=== PATIENT | female | born 1945 | race Caucasian/White ===

== ENCOUNTER 2020-02-08 13:52 | Emergency (ER) | payer MEDICARE, OTHER ==
[2020-02-08] MEDS ORDERED: Aspirin 300 MG Supp RECTAL ONE (13:58)
[2020-02-08] MEDS ORDERED: Morphine 4 MG/ML Syringe IVPUSH PRN (13:58)
--- NOTE | 2020-02-08 14:02 | EDM.PDOC ---
ED HPI GENERAL MEDICAL PROBLEM - General Chief Complaint: Chest Pain Stated Complaint: [facility] Time Seen by Provider: 02/08/20 13:57 Source of Information: Reports: Patient, RN Notes Reviewed History Limitations: Reports: No Limitations - History of Present Illness INITIAL COMMENTS - FREE TEXT/NARRATIVE: 74-year-old female presents emergency department a complaint of chest pain, chest pain started approximately 2 hours prior she states it was quite intense she had some nausea with vomiting blood-tinged sputum very diaphoretic feeling short of breath. She states she has no known cardiac history however her twin sister does have a known history of coronary artery disease. She called EMS services EKG was obtained does show a left bundle branch block no aspirin was given because of the blood-tinged sputum was given 4 mg Zofran and 2 sprays of nitro which brought the pain down to a 5 out of 10. She is still complaining of chest pain, she is anxious and feeling short of breath nausea has subsided - Related Data Allergies Allergy/AdvReac Type Severity Reaction Status Date / Time tetracycline [Tetracycline] Allergy Swelling Verified 02/08/20 14:02 Home Meds: Home Meds Aspirin 1 tab PO DAILY 05/02/14 [History] Enalapril [Vasotec] 30 mg PO DAILY 05/02/14 [History] Simvastatin [Zocor] 20 mg PO DAILY 05/02/14 [History] Past Medical History HEENT History: Reports: Impaired Vision Cardiovascular History: Reports: High Cholesterol, Hypertension [employer] History: Reports: Musculoskeletal History: Reports: Arthritis, Osteoarthritis, Other (See Below) Other Musculoskeletal History: Hx of fractured ankle - Past Surgical History GI Surgical History: Reports: Appendectomy, Cholecystectomy Female Surgical History: Reports: Hysterectomy, Oophorectomy Social & Family History - Family History Cardiac: Reports: CAD, Hypertension, [place] Neurological: Reports: Parkinson's ED ROS GENERAL - Review of Systems Review Of Systems: See Below Constitutional: Reports: No Symptoms HEENT: Reports: No Symptoms Respiratory: Reports: Shortness of Breath Cardiovascular: Reports: Chest Pain GI/Abdominal: Reports: Nausea, Vomiting : Reports: No Symptoms Musculoskeletal: Reports: No Symptoms Skin: Reports: No Symptoms ED EXAM, GENERAL - Physical Exam Exam: See Below Exam Limited By: No Limitations General Appearance: Alert, Mild Distress Respiratory/Chest: No Respiratory Distress, Lungs Clear, Normal Breath Sounds, No Accessory Muscle Use, Chest Non-Tender Cardiovascular: Regular Rate, Rhythm, No Murmur GI/Abdominal: Soft, Non-Tender Extremities: No Pedal Edema (Is) Course - Vital Signs Last Recorded V/S: Last Vital Signs Temp 96.8 F L 02/08/20 13:58 Pulse 69 02/08/20 16:15 Resp 15 02/08/20 16:15 BP 139/75 02/08/20 16:15 Pulse Ox 98 02/08/20 16:15 - Orders/Labs/Meds Orders: Active Orders 24 hr Category Date Time Status Cardiac Monitoring [RC] .As Directed Care 02/08/20 13:58 Active Cardiac Monitoring [RC] STAT Care 02/08/20 14:45 Active Communication Order [RC] Per Unit Routine Care 02/08/20 14:45 Active Communication Order [RC] Per Unit Routine Care 02/08/20 14:45 Active EKG Documentation Completion [RC] ASDIRECTED Care 02/08/20 13:59 Active Chest 1V Frontal [CR] Stat Exams 02/08/20 13:59 Taken Heparin Sodium/D5W [Heparin 25,000 Units in D5W 500 ML] Med 02/08/20 14:45 Active 25,000 units in 500 ml IV TITRATE Morphine Med 02/08/20 13:58 Active 4 mg IVPUSH Q10M PRN EKG 12 Lead [EK] Stat Ther 02/08/20 13:59 Ordered Medication Orders Heparin Sodium/Dextrose (Heparin 25,000 Units In D5w 500 Ml) 25,000 units in 500 mls @ 925.916 mls/hr IV TITRATE GERALDO; Protocol Last Admin: 02/08/20 15:29 Dose: 12 units/kg/hr, 14.914 mls/hr Documented by: JA Cosigned by: [id number] Morphine Sulfate (Morphine) 4 mg IVPUSH Q10M PRN PRN Reason: Chest Pain Stop: 02/09/20 13:58 Last Admin: 02/08/20 15:50 Dose: 4 mg Documented by: JA Labs: Laboratory Tests 02/08/20 02/08/20 02/08/20 Range/Units 14:15 14:15 14:15 WBC 9.3 (4.5-11.0) K/uL RBC 4.07 (3.30-5.50) M/uL Hgb 12.5 (12.0-15.0) g/dL Hct 38.0 (36.0-48.0) % MCV 93 (80-98) fL MCH 31 (27-31) pg MCHC 33 (32-36) % Plt Count 364 (150-400) K/uL Neut % (Auto) 76 H (36-66) % Lymph % (Auto) 16 L (24-44) % Wy[place] % (Auto) 5 (2-6) % Eos % (Auto) 2 (2-4) % Baso % (Auto) 1 (0-1) % PT 11.3 (9.5-12.0) sec INR 1.05 (0.80-1.20) Sodium 140 (140-148) mmol/L Potassium 3.7 (3.6-5.2) mmol/L Chloride 103 (100-108) mmol/L Carbon Dioxide 26 (21-32) mmol/L Anion Gap 11.4 (5.0-14.0) mmol/L BUN 17 (7-18) mg/dL Creatinine 0.8 (0.6-1.0) mg/dL Est Cr Clr Drug Dosing 45.85 mL/min Estimated GFR (MDRD) > 60 (>60) Glucose 162 H (74-106) mg/dL Calcium 9.0 (8.5-10.1) mg/dL Total Bilirubin 0.4 (0.2-1.0) mg/dL AST 23 (15-37) U/L ALT 30 (12-78) U/L Alkaline Phosphatase 86 (46-116) U/L Troponin I 0.355 H* (0.000-0.056) ng/mL Total Protein 7.1 (6.4-8.2) g/dL Albumin 3.8 (3.4-5.0) g/dL Globulin 3.3 (2.3-3.5) g/dL Albumin/Globulin Ratio 1.2 (1.2-2.2) Meds: Medications Generic Name Dose Route Start Last Admin Trade Name Freq PRN Reason Stop Dose Admin Heparin Sodium/Dextrose 25,000 units in 500 mls @ 925.916 mls/hr 02/08/20 14:45 02/08/20 15:29 Heparin 25,000 Units In D5w 500 Ml IV 12 units/kg/hr TITRATE GERALDO 14.914 mls/hr Administration Protocol 745 UNITS/KG/HR Morphine Sulfate 4 mg 02/08/20 13:58 02/08/20 15:50 Morphine IVPUSH 02/09/20 13:58 4 mg Q10M PRN Administration Chest Pain Discontinued Medications Generic Name Dose Route Start Last Admin Trade Name Freq PRN Reason Stop Dose Admin Aspirin 324 mg 02/08/20 14:45 02/08/20 14:34 Aspirin .XX 02/08/20 14:46 324 mg ONETIME ONE Administration Heparin Sodium (Porcine) 3,700 units 02/08/20 14:45 02/08/20 15:02 Heparin Sodium IVPUSH 02/08/20 14:46 3,700 units ONETIME ONE Administration Ticagrelor 180 mg 02/08/20 14:45 02/08/20 15:01 Brilinta PO 02/08/20 14:46 180 mg ONETIME ONE Administration Departure - Departure Time of Disposition: 16:30 Disposition: DC/Tfer to Acute Hospital 02 Reason for Transfer *Q: Primary PCI Indicated Condition: Fair Clinical Impression: Non-STEMI (non-ST elevated myocardial infarction) Referrals: PCP,None [Primary Care Provider] - Forms: ED Department Discharge Critical Care Note - Critical Care Note Total Time (mins): 30 Sepsis Event Note (ED) - Focused Exam Vital Signs: Vital Signs Temp Pulse Resp BP Pulse Ox 02/08/20 16:15 69 15 139/75 98 02/08/20 15:24 67 10 L 157/82 H 98 02/08/20 14:55 67 16 153/79 H 100 02/08/20 14:30 62 140/73 02/08/20 13:58 96.8 F L 79 13 165/92 H 98 - My Orders Last 24 Hours: My Active Orders 02/08/20 13:58 Cardiac Monitoring [RC] .As Directed Morphine 4 mg IVPUSH Q10M PRN 02/08/20 13:59 EKG Documentation Completion [RC] ASDIRECTED Chest 1V Frontal [CR] Stat EKG 12 Lead [EK] Stat 02/08/20 14:45 Cardiac Monitoring [RC] STAT Communication Order [RC] Per Unit Routine Communication Order [RC] Per Unit Routine Heparin Sodium/D5W [Heparin 25,000 Units in D5W 500 ML] 25,000 units in 500 ml IV TITRATE - Assessment/Plan Last 24 Hours: My Active Orders 02/08/20 13:58 Cardiac Monitoring [RC] .As Directed Morphine 4 mg IVPUSH Q10M PRN 02/08/20 13:59 EKG Documentation Completion [RC] ASDIRECTED Chest 1V Frontal [CR] Stat EKG 12 Lead [EK] Stat 02/08/20 14:45 Cardiac Monitoring [RC] STAT Communication Order [RC] Per Unit Routine Communication Order [RC] Per Unit Routine Heparin Sodium/D5W [Heparin 25,000 Units in D5W 500 ML] 25,000 units in 500 ml IV TITRATE Plan: Assessment Acuity = acute Site and laterality = non-ST elevation myocardial infarction complicated patient with known history of hypertension dyslipidemia Etiology = probable underlying coronary artery disease Manifestations = angina Location of injury = Home Lab values = CBC, CMP unremarkable troponin elevated 0.355 EKG does demonstrate a new left bundle branch block with ST depressions in V3 4 5 and [address] depressions in 1 and 2, chest x-ray I did review films myself I cannot appreciate any acute process, the official read from radiology is pending Plan Call discussed case with Dr. De La Rosa hospitalist on-call [facility] at 1530 did review the case with cardiology was finally accepted by Dr. Trevino hospitalist at 1620 thus far she has been given aspirin rectally, 180 mg Brilinta heparin bolus and heparin drip has been initiated she will be transported via EMS ground [facility] This note was dictated using [employer] voice recognition software please call with any questions on syntax or grammar.
[2020-02-08] MEDS ORDERED: Aspirin 81 MG Tab.Chew ONE (14:45)
[2020-02-08] MEDS ORDERED: Heparin Sodium/D5W 25,000 UNITS/500 ML BAG IV SCH (14:45)
[2020-02-08] MEDS ORDERED: Ticagrelor 90 MG Tab PO ONE (14:45)
[2020-02-08] MEDS ORDERED: Heparin Sodium 5,000 Units/ML Vial IVPUSH ONE (14:45)
[2020-02-08 16:29] VITALS: BP 146/75; PULSE 58
--- NOTE | 2020-02-10 09:24 | CR ---
CHEST: Portable 02/08/2020 at 2:24 PM CLINICAL HISTORY:Chest pain COMPARISON:None FINDINGS: The heart size, pulmonary vascularity and hilar structures are normal. No infiltrate effusion or pneumothorax is seen. There are atherosclerotic changes in the aorta. IMPRESSION: No acute cardiopulmonary process.
--- OUTSIDE RECORDS SUMMARY | 2020-02-12 12:03 | XMSREPORT ---
:1945 Author Organization [facility] s Address [address] [place] [address] Care Team Providers Name Role Phone KAMILA Munguia Primary Care Provider KAMILA Munguia Attributed Provider MD Milka Unavailable Reason for Referral Comprehensive Primary Care Plus (Routine) Status Reason Specialty Diagnoses / Referred By Referred To Contact Procedures Contact New Request CARDIOLOGY Diagnoses Non-ST elevation MS (NSTEMI) ([facility]) Krzysztof Lopez [facility] Cardiology Mickey Lauren MD [address] [phone] Phone: Phone: Scheduling Instructions This is an electronic referral. Reason for Visit Reason Comments Auth/Cert Status Reason Specialty Diagnoses / Procedures Referred By Keagan yang Referred To Contact Encounter Details Date Type Department Care Team Description 02/08/2020 - Hospital Encounter [facility] Provider, Gen vj Hosp Procedure Chest pain 02/11/2020 CENTER 6CD David Lyon MD [address] [place], [place] [id number] Inderjit Aranda MD [address] [place], [place] [id number] [place] [address] Krzysztof Lopez MD [address] [place] [address] [phone] Leonidas Sotelo MD [address] [place] [address] [phone] Allergies Active Allergy Reactions Severity Noted Date Comments Tetracyclines Edema 04/10/2012 Lip Swelling documented as of this encounter (statuses as of 02/11/2020) Medications Medication Sig Dispensed Refills Start End Status Date Date aspirin 81 mg enteric Take 81 mg 0 Active coated tablet by mouth 1 time per day. anastrozole (ARIMIDEX) 1 Take 1 90 tablet 3 08/05/20 Active MG tabletIndications: tablet (1 19 Breast cancer of mg) by mouth upper-outer quadrant of 1 time per left female breast (HCC) day Cholecalciferol (VITAMIN Take 1 0 05/02/20 Active D-3) 25 MCG (1000 UT) capsule by 19 CAPS mouth atorvaSTATin (LIPITOR) Take 1 30 tablet 1 02/11/20 Active 40 mg tabletIndications: tablet (40 20 020 Non-ST elevation MS mg) by mouth (NSTEMI) ([facility]) every night at bedtime metoprolol tartrate Take 0.5 30 tablet 1 02/11/20 Active (LOPRESSOR) 25 mg tablets 20 020 tabletIndications: (12.5 mg) by Non-ST elevation MS mouth 2 (NSTEMI) ([facility]) times a day ticagrelor (BRILINTA) 90 Take 1 60 tablet 0 02/10/03/12 Active mg tabletIndications: tablet (90 20 020 Non-ST elevation MS mg) by mouth (NSTEMI) ([facility]) 2 times a day nitroglycerin Dissolve 1 25 tablet 0 02/11/20 Activ e (NITROSTAT) 0.4 mg tablet (0.4 20 020 sublingual mg) under tabletIndications: the tongue Non-ST elevation MS Every 5 (NSTEMI) ([facility]) minutes as needed for chest pain May repeat every 5 minutes for a total of 3 doses. K Phos Wasatch-Sod Phos Di Take 2 6 tablet 3 02/11/20 Active & Wasatch (J-EIOC-CULVXRA) tablets (500 20 155-852-130 MG mg) by mouth TABSIndications: 1 time per Hypokalemia day enalapril-hydroCHLOROthi Take 1 90 tablet 0 08/09/2002/10 Discontinued azide (VASERETIC) 10-25 tablet by 19 020 (Stop Taking at mg tabletIndications: mouth 1 time Discharge) Essential hypertension per day simvastatin (ZOCOR) 20 TAKE 1 & 1/2 135 tablet 4 09/10/19 Discontinued mg tabletIndications: (ONE & 20 020 (Stop Taking at Pure ONE-HALF) Discharge) hypercholesterolemia TABLETS BY MOUTH ONCE DAILY documented as of this encounter (statuses as of 02/11/2020) Active Problems Problem Noted Date Chest pain 02/08/2020 Overweight (BMI 25.0-29.9) 06/12/2017 Breast cancer of upper-outer quadrant of left female b reast 07/15/2016 Osteopenia 04/10/2012 Essential hypertension 04/10/2012 Esophageal reflux 03/30/2009 Pure hypercholesterolemia 12/18/2002 Osteoarthritis 12/18/2002 documented as of this encounter (statuses as of 02/11/2020) Immunizations Name Administration Dates Next Due Pneumococcal Conj PCV13 06/01/2015 Pneumococcal Polysaccharide PPSV23 06/08/2016, 03/30/2009 Td(adult)preservative free 05/08/2006 documented as of this encounter Social History Tobacco Use Types Packs/Day Years Used Date Former Smoker Cigarettes 0.5 0.5 Quit: 08/14/18 74 Smokeless Tobacco: Never Used Alcohol Use Drinks/Week oz/Week Comments No 0.0 Physical Activity Answer Date Recorded On average, how many days per week do you engage in moderate to 0 days 08/27/2019 strenuous exercise (like walking fast, running, jogging, dancing, swimming, biking, or other activities that cause a light or heavy sweat)? On average, how many minutes do you engage in exercise at th is 0 min 08/27/2019 level? Sex Assigned at Date Recorded Not on file Job Start Date Occupation Industry Not on file Not on file Not on file Travel History Travel Start Travel End No recent travel history available. documented as of this encounter Last Filed Vital Signs Vital Sign Reading Time Taken Comments Blood Pressure 148/77 02/11/2020 8:54 AM CDT Pulse 101 02/11/2020 8:54 AM CDT Temperature 37.1 C (98.7 F) 02/11/2020 7:31 AM CDT Respiratory Rate 16 02/11/2020 7:31 AM CDT Oxygen Saturation 93% 02/11/2020 7:31 AM CDT Inhaled Oxygen Concentration - - Weight 60.7 kg (133 lb 12.8 oz) 02/10/2020 6:44 AM CDT Height 154.9 cm (5' 1") 02/08/2020 8:00 PM CDT Body Mass Index 25.28 02/08/2020 8:00 PM CDT documented in this encounter Functional Status Functional Status Response Date of Assessment Is the person deaf or does he/she have serious difficulty No 02/08/2020 hearing? Is this person blind or does he/she have difficulty No 02/08/2020 seeing even when wearing glasses? Do you have difficulty with walking, balance, climbing No 02/08/2020 stairs, or had a fall in the last 3 months? Does the patient have difficulty dressing or bathing? No 02/08/2020 Because of a physical, mental, or emotional condition; No 02/08/2020 does this person have difficulty doing errands alone such as visiting a doctor's office or shopping? Cognitive Status Response Date of Assessment Because of a physical, mental, or emotional condition; No 02/08/2020 does this person have serious difficulty concentrating, remembering, or making decisions? documented as of this encounter Discharge Summaries Not on filedocumented in this encounter Discharge Instructions AttachmentsThe following attachments cannot be sent through Care Everywhere. *Discharge Instructions after Angiogram (Citizen Of [place])documented in this encounter Medications at Time of Discharge Medication Sig Dispensed Refills Start Date End Date atorvaSTATin (LIPITOR) 40 Take 1 tablet (40 30 tablet 1 04/11/2020 mg tabletIndications: mg) by mouth every Non-ST elevation MS night at bedtime (NSTEMI) ([facility]) ticagrelor (BRILINTA) 90 Take 1 tablet (90 60 tablet 0 01/1403/12/2020 mg tabletIndications: mg) by mouth 2 Non-ST elevation MS times a day (NSTEMI) ([facility]) nitroglycerin (NITROSTAT) Dissolve 1 tablet 25 tablet 0 03/12/2020 0.4 mg sublingual (0.4 mg) under the tabletIndications: Non-ST tongue Every 5 elevation MS (NSTEMI) minutes as needed (HCC) for chest pain May repeat every 5 minutes for a total of 3 doses. Cholecalciferol (VITAMIN Take 1 capsule by 0 04/14 D-3) 25 MCG (1000 UT) CAPS mouth anastrozole (ARIMIDEX) 1 Take 1 tablet (1 90 tablet 3 08/05 MG tabletIndications: mg) by mouth 1 time Breast cancer of per day upper-outer quadrant of left female breast (HCC) aspirin 81 mg enteric Take 81 mg by mouth 0 coated tablet 1 time per day. metoprolol tartrate Take 0.5 tablets 30 tablet 1 02/11/2020 04/11/2020 (LOPRESSOR) 25 mg (12.5 mg) by mouth tabletIndications: Non-ST 2 times a day elevation MS (NSTEMI) (HCC) K Phos Wasatch-Sod Phos Di & Take 2 tablets (500 6 tablet 3 0 02/11/2020 Wasatch (S-ZMSZ-NXIAXRO) mg) by mouth 1 time 155-852-130 MG per day TABSIndications: Hypokalemia documented as of this encounter Progress Notes Inderjit Westbrook MD - 02/09/2020 6:12 PM CDT Cardiology Hospital Progress Note Assessment / Plan Active Problems: Chest pain Resolved Problems: * No resolved hospital problems. * Plan: The patient is seen and examined, chart is reviewed. Patient is 74 years old. Yesterday admitted with non-ST elevation myocardial infarction. Underwent a coronary angiogram by Dr. Black Hogan.Angiogram showed multivessel coronary artery disease, 95% proximal LAD stenosis, 90% proximal RCA, 100% circumflex. Her ventriculogram showed left ventricular ejection fraction of 40%. Dr. Hogan discussed with Dr. Jordan regarding feasibility of coronary artery bypass surgery. However, it was feltit is better she get multivessel coronary artery stenting procedure secondary to the fact that she had received dual antiplatelet agent. Hence, he proceeded with PTCA stenting of the left anterior descending artery as well as the right coronary artery. The patient had an echocardiogram today. I reviewed the echo images. Her left ventricular ejection fraction was normal on the echo images at 55% as compared to the ventriculogram, so we will go by echo images LV function assessment. No significant valvular abnormality. Right ventricular function appeared normal. Based on discussion, Dr. Hogan discontinued the intraaortic balloon pump today as she was hemodynamically stable. Patient's medications include aspirin and ticagrelor and high-intensity statin therapy. Now that the intraaortic balloon pump has come down, we will start her on small doses of Lasix and lisinopril therapy. She will be enrolled in cardiac rehab. Will review her tomorrow and I will leave it to the primary team for discharge planning. Receipt: [id number] [facility] ID: [id number]/[facility] [employer] HPI / History / ROS Esther Osborne is a 74yr old female admitted on 02/08/2020. HPI Review of Systems Physical / Results Current Vital Signs Temp: 98.6 F (37 C) BP: 142/70 Weight: 60.7 kg (133 lb 12.8 oz) SpO2: 100 % Resp: 13 Pulse: 89 Current BMI (>50 = increased risk): 25.29 O2 Device: Room Air O2 Flow Rate (L/min): 2 l/min Pain Ratin Maximum Temperatures (last 24 hours) Temperature Maximum Max Temp 99.1 F (37.3 C) Physical Exam Constitutional: No distress. HENT: Mouth/Throat: Oropharynx is clear. Eyes: Conjunctivae are normal. Neck: No JVD present. No neck adenopathy. No thyromegaly present. Cardiovascular: S1 normal and S2 normal. Pulmonary/Chest: She has no wheezes. She has no rales. Abdominal: Soft. Musculoskeletal: She exhibits no edema. Neurological: She is alert and oriented to person, place, and time. Skin: Skin is warm and dry. Lab Results Component Value Date GLUCOSE 164 (H) 02/09/2020 BUN 15 02/09/2020 CREATSERUM 0.71 02/09/2020 BCRATIO 21.1 02/09/2020 NA 140 02/09/2020 POTASSIUM 3.4 (L) 02/09/2020 CL 110 02/09/2020 CO2 19 (L) 02/09/2020 CA 8.3 (L) 02/09/2020 PROTEINTOTAL 5.7 (L) 02/09/2020 ALBUMIN 3.5 02/09/2020 ALKPHOS 71 02/09/2020 AST 154 (H) 02/09/2020 ALT 32 02/09/2020 BILITOTAL 0.5 02/09/2020 EGFR 80 02/09/2020 Lab Results Component Value Date WBC 17.8 (H) 02/09/2020 NUCRBC 0 02/09/2020 RBC 3.51 (L) 02/09/2020 HEMOGLOBIN 9.8 (L) 02/09/2020 HEMATOCRIT 32.4 (L) 02/09/2020 MCV 92.3 02/09/2020 MCH 31.6 02/09/2020 MCHC 34.3 02/09/2020 PLTCOUNT 341 02/09/2020 NEUTROPCT 91.4 02/09/2020 LYMPHSPCT 2.7 02/09/2020 MONOSPCT 5.2 02/09/2020 EOSPCT 0.0 02/09/2020 BASOPHILPCT 0.2 02/09/2020 Faby Good MD - 02/09/2020 6:31 AM CDT INTERNAL MEDICINE DAILY PROGRESS NOTE Patient Name: Esther Osborne Admitted: 02/08/2020 Today's Date: 02/09/2020 Summary This is a 74 year old female with a past medical history of hypertension hyperlipidemia who presented with chest pain from outside facility. Troponin as 0.355 at outside facility. BNP elevated at 349. EKG showed ST depressions in V3 through V6 with new left bundle branch block. On admission her troponin had increased to 5.6 and on-call cardiology was notified and EKG was reviewed. At that time interventional cardiology was notified of increased troponin and was taken to emergent left heart cath. Coronary angiogram showed 95% diffuse proximal LAD stenosis, 90% proximal RCA stenosis, 100% circumflex, OM1 and OM2 appear large supplied by left to left collaterals. Left ventriculography EF 40% with anterior apical severe hypokinesis. At the time of emergent angiogram he was discussed with Dr. Jordan to original plan was for CABG however the patient was loaded with plan to continue to have chest pain despite balloon pump. It was elected to proceed with percutaneous intervention to the LAD which appeared to be the culprit vessel. The patient received PTCA and stenting to the proximal LAD with a 3.038 HEATHER, PTCA and stenting to the proximal RCA with 2.5 x 26 HEATHER. Assessment and Plan Acute Medical Conditions: #CAD s/p stent to LAD and RCA #Systolic HF #NSTEMI likely Type 1 #Typical chest pain #New LBBB #HTN #HLD This is a 74-year-old female who is admitted for an STEMI and typical chest pain who underwent emergent angiogram with stent placement to the LAD and RCA. -Overnight patient had oozing blood from her IABP site to the right quadrant area. -Has IABP placed -The patient does have an appetite was encouraged oral hydration and intake -The patient remained chest pain-free, nausea improved, abdominal pain improved Plan: -Cardiology following -IR Cardiology following -Telemetry -Echo ordered -Nitro and morphine PRN -Lopressor -Asa and Brillinta -Holding home Vaseretic -Lipitor 40mg -IVF -Daily labs CODE STATUS: Full Code DVT Prophylaxis: SCD Therapies: PT/OT Diet: HH Interval History The patient went to emergent Angiocath yesterday with stent placement. Overnight noted bleeding andcoincided Dr. Hogan was notified and pressure was held for 2 hours. Medications Current Facility-Administered Medications Medication Dose Route Frequency Provider Last Rate Last Dose sodium chloride 0.9% flush (adult) 10 mL 10 mL IV 2 times a day and prn Leonidas Sotelo MD metoclopramide (REGLAN) inj soln 5 mg 5 mg IV Every 6 hours prn Leonidas Sotelo MD5 mg at 02/08/202102 sodium chloride 0.9% IV solution IV Continuous Leonidas Sotelo MD 50 mL/hr at 02/08/202021 morphine preservative free injection solution (conc: 2 mg/mL) 2 mg 2 mg IV Every 5 minutes prn Faby Plascencia MD melatonin tablet 3 mg 3 mg Oral Bedtime prn Faby Plascencia MD senna-docusate sodium (SENOKOT-S;PERICOLACE) tablet 2 tablet 2 tablet Oral 2 times a day prn Faby Plascencia MD And bisacodyl (DULCOLAX) suppository 10 mg 10 mg Rectal 1 time a day prn Faby Plascencia MD And docusate sodium (THEREVAC-SB MINI;ENEMEEZ MINI) 283 MG enema 1 enema 1 enema Rectal 1 time a day prn Faby Plascencia MD ondansetron (ZOFRAN ODT) dispersible tablet 4 mg 4 mg Oral Every 4 hours prn Faby Plascencia MD And ondansetron (ZOFRAN) injection solution 4 mg 4 mg IV Every 4 hours prn Faby Plascencia MD acetaminophen (TYLENOL) tablet 650 mg 650 mg Oral Every 6 hours prn Faby Plascencia MD Or acetaminophen (TYLENOL) suppository 650 mg 650 mg Rectal Every 6 hours prn Faby Plascencia MD metoprolol tartrate (LOPRESSOR) half-tablet 12.5 mg 12.5 mg Oral 2 times a day Faby Plascencia MD 12.5 mg at 02/08/202029 atorvaSTATin (LIPITOR) tablet 40 mg 40 mg Oral at bedtime Faby Plascencia MD 40 mg at 02/08/202028 hEParin (50 units/mL) in D5W premixed IV solution (STANDARD-weight based) 0-50 Units/kg/hr IV Titrate Faby Plascencia MD Stopped at 02/09/20 0004 heparin (porcine) (5000 units/1 mL) IV dose 2,100 Units 35 Units/kg IV PRN per parameter Faby Plascencia MD Or heparin (porcine) (5000 units/1 mL) IV dose 4,200 Units 70 Units/kg IV PRN per parameter Faby Plascencia MD acetaminophen (TYLENOL) tablet 650 mg 650 mg Oral Every 4 hours prn Karen Hogan, hydrALAZINE (APRESOLINE) injection solution 10 mg 10 mg IV Every 6 hours prn Karen Hogan, nitroglycerin (NITROSTAT) sublingual tablet 0.4 mg 0.4 mg Sublingual Every 5 minutes prn Karen Hogan, DO aspirin chewable tablet 81 mg 81 mg Oral Daily Karen Hogan, DO ticagrelor (BRILINTA) tablet 90 mg 90 mg Oral 2 times a day Karen Hogan DO nitroglycerin (400 mcg/mL) in D5W IV solution (premix) 0-100 mcg/min IV Titrate Karen Hogan DO albuterol (PROVENTIL) (2.5 mg/3mL) 0.083% inhalation soln 2.5 mg 2.5 mg Nebulization Every 4 hours prn Melchor Rucker MD Review of Systems Review of Systems Constitution: Negative for chills and fever. HENT: Negative for ear pain. Eyes: Negative for pain. Cardiovascular: Negative for chest pain, dyspnea on exertion, leg swelling and palpitations. Respiratory: Negative for cough and shortness of breath. Musculoskeletal: Negative for joint pain and myalgias. Gastrointestinal: Negative for abdominal pain, constipation, diarrhea, nausea and vomiting. Genitourinary: Negative for dysuria. Neurological: Negative for focal weakness, headaches, light-headedness and weakness. Physical Exam Blood pressure 134/95, pulse 81, temperature 97.4 F (36.3 C), resp. rate 15, height 154.9 cm (61"), weight 60.7 kg (133 lb 12.8 oz), SpO2 98 %, not currently . Physical Exam Constitutional: She is oriented to person, place, and time. She appears well- developed and well-nourished. HENT: Head: Normocephalic and atraumatic. Right Ear: External ear normal. Left Ear: External ear normal. Eyes: Pupils are equal, round, and reactive to light. Conjunctivae and EOM are normal. Neck: Normal range of motion. Cardiovascular: Normal rate, regular rhythm, normal heart sounds and intact distal pulses. Exam reveals no friction rub. No murmur heard. Pulmonary/Chest: Breath sounds normal. No respiratory distress. Abdominal: Soft. Bowel sounds are normal. She exhibits no distension. There is no tenderness. Noted dried blood on right groin No obvious bleeding Tender to palpation Musculoskeletal: Normal range of motion. She exhibits no edema, tenderness or deformity. Lymphadenopathy: She has no cervical adenopathy. Neurological: She is alert and oriented to person, place, and time. Skin: Skin is warm and dry. No erythema. Psychiatric: She has a normal mood and affect. Labs reviewed. All pertinent positives and negatives reflected in the assessment and plan Medical Decision making Reviewed: previous chart, nursing note and vitals Reviewed previous: labs Faby Plascencia MD Internal Medicine Resident, PGY1 Pager #[phone] [place], [place] Associated attestation - David Rowan MD - 02/09/2020 12:36 PM CDT I discussed the patient with the resident and personally interviewed and examined the patient. I verified in the medical record all resident documentation/findings, including history, physical exam, and medical decision making, and I agree with the resident's documentation.documented in this encounter Plan of Treatment Date Type Specialty Care Team Description 02/17/2020 Office Visit Internal Medicine Farnaz Munguia PA [address] [place], [place] [id number] 02/20/2020 Office Visit Internal Medicine Farnaz Munguia PA [address] [place] [address] [phone] Name Type Priority Associated Diagnoses Order S chedule COMPLETE BLOOD COUNT Lab Routine Early A M draw for labs WITHOUT DIFFERENTIAL until d iscontinued starting 2019, 2 completed RENAL FUNCTION PANEL Lab Routine Early A M draw for labs until discontin ued starting 2019, 2 completed MAGNESIUM Lab Routine Early AM draw f or labs until discontin ued starting 2019, 2 completed POTASSIUM Lab Timed STAT Once for 1 Occu rrences starting 2019 until 0 Name Type Priority Associated Diagnoses Order S chedule CLINIC REFERRAL Referral Routine Non-ST elevation MS Order ed: 02/11/2020 CARDIOLOGY ONE CHART (NSTEMI) ([facility]) documented as of this encounter Goals Goal Patient Goal Associated Recent Patient-Stated? Author Type Problems Progress Blood Pressure Blood 148/77 No Wilks, < 140/90 Pressure Sandra Iglesias LPN documented as of this encounter Implants Implanted Type Area Dividend Deposit Entry Clerk Device Shelf Model / Identifier Expiration Date Ser ial / Lot [employer]-07/04/2016 Left: 7 / Implanted: Qty: 1 on 07/04/2016 by Mayo Slaughter MD JULIETA AST / [id number] documented as of this encounter Procedures Procedure Name Priority Date/Time Associated Comments Diagnosis COMPLETE BLOOD COUNT Routine 02/11/2020 5:27 Res ults for this WITHOUT DIFFERENTIAL AM CDT procedu re are in the results section. MAGNESIUM Routine 02/11/2020 5:27 Results for this AM CDT procedure are i n the results section. RENAL FUNCTION PANEL Routine 02/11/2020 5:27 Res ults for this AM CDT procedure are i n the results section. COMPLETE BLOOD COUNT Routine 02/10/2020 5:39 Res ults for this WITHOUT DIFFERENTIAL AM CDT procedu re are in the results section. TROPONIN I Routine 02/10/2020 5:39 Results for this AM CDT procedure are i n the results section. MAGNESIUM Routine 02/10/2020 5:39 Results for this AM CDT procedure are i n the results section. RENAL FUNCTION PANEL Routine 02/10/2020 5:39 Res ults for this AM CDT procedure are i n the results section. EKG STAT 02/09/2020 6:40 Results for this PM CDT procedure are i n the results section. HEMOGLOBIN Routine 02/09/2020 4:12 Results for this PM CDT procedure are i n the results section. HEMOGLOBIN Routine 02/09/2020 12:03 Results for this PM CDT procedure are i n the results section. ECHO ADULT COMPLETE Routine 02/09/2020 10:53 Resu lts for this AM CDT procedure are i n the results section. EKG Routine 02/09/2020 7:48 Results for this AM CDT procedure are i n the results section. LAB ONLY-COMPLETE Routine 02/09/2020 5:10 Result s for this BLOOD COUNT WITH AM CDT procedure a re in DIFFERENTIAL the results section. LIPID PANEL Routine 02/09/2020 5:10 Results for this AM CDT procedure are i n the results section. PTT Timed Routine 02/09/2020 5:10 Results fo r this AM CDT procedure are i n the results section. TROPONIN I Timed Routine 02/09/2020 5:10 Results fo r this AM CDT procedure are i n the results section. HEPATIC FUNCTION Routine 02/09/2020 5:10 Results for this PANEL AM CDT procedure are i n the results section. MAGNESIUM Routine 02/09/2020 5:10 Results for this AM CDT procedure are i n the results section. BASIC METABOLIC PANEL Routine 02/09/2020 5:10 Re sults for this AM CDT procedure are i n the results section. LAB ONLY-COMPLETE Routine 02/09/2020 5:10 Result s for this BLOOD COUNT WITH AM CDT procedure a re in DIFFERENTIAL the results section. EKG STAT 02/09/2020 12:14 Results for this AM CDT procedure are i n the results section. TROPONIN I Timed Routine 02/08/2020 11:54 Results fo r this PM CDT procedure are i n the results section. TYPE AND SCREEN Routine 02/08/2020 10:52 Results for this PM CDT procedure are i n the results section. CARDIAC CATH POSSIBLE Routine 02/08/2020 10:30 Re sults for this ANGIOPLASTY STENT PM CDT procedure are in HAND GLUER AND SLICER the results section. LAB ONLY-ABORH STAT 02/08/2020 10:22 Results f or this PM CDT procedure are i n the results section. COLLECT AND HOLD Routine 02/08/2020 10:22 Results for this POSSIBLE CROSSMATCH PM CDT procedur e are in TUBE the results section. COLLECT AND HOLD Routine 02/08/2020 10:10 Results for this POSSIBLE CROSSMATCH PM CDT procedur e are in TUBE the results section. XRAY CHEST PORTABLE Routine 02/08/2020 9:14 Resu lts for this PM CDT procedure are i n the results section. LAB ONLY-COMPLETE Routine 02/08/2020 8:28 Result s for this BLOOD COUNT WITH PM CDT procedure a re in DIFFERENTIAL the results section. COMPREHENSIVE Routine 02/08/2020 8:28 Results fo r this METABOLIC PANEL PM CDT procedure ar e in the results section. LAB ONLY-COMPLETE Routine 02/08/2020 8:28 Result s for this BLOOD COUNT WITH PM CDT procedure a re in DIFFERENTIAL the results section. EKG STAT 02/08/2020 8:05 Results for this PM CDT procedure are i n the results section. PTT RENEE 02/08/2020 8:02 Results for this PM CDT procedure are i n the results section. TROPONIN I Timed Routine 02/08/2020 8:02 Results fo r this PM CDT procedure are i n the results section. BRAIN NATRIURETIC Routine 02/08/2020 8:02 Result s for this PEPTIDE PM CDT procedure are i n the results section. documented in this encounter Results MAGNESIUM (02/11/2020 5:27 AM CDT) Pathologist Sig formerly [facility] Magnesium 2.1 1.8 - 2.4 mg/dL [place] [address] [facility] Specimen Blood Performing Organization Address [facility] [place] [facility] Phone Number [address] [place] [address] RENAL FUNCTION PANEL (02/11/2020 5:27 AM CDT) Pathologist Sig formerly [facility] Glucose 114 (H) 70 - 100 mg/dL [address] BUN 15 6 - 22 mg/dL [address] Creatinine 0.62 0.60 - 1.[address] mg/dL BUN/Creatinine Ratio 24.2 10.0 - 25.[address] Sodium 139 135 - 145 meq/L [address] Potassium 3.2 (L) 3.5 - 5.3 meq/L [address] Chloride 110 99 - 110 meq/L [address] CO2 21 20 - 29 meq/L [address] Anion Gap with K 11 6 - 20 meq/L [address] Calcium 8.2 (L) 8.5 - 10.5 mg/dL [address] Phosphorus 1.5 (L) 2.5 - 4.5 mg/dL [address] Albumin 3.5 3.5 - 5.0 g/dL [address] Corrected Calcium 8.6 8.5 - 10.5 mg/dL [address] Age [address] eGFR Non- >90 >=[address] Slovenian mL/min/1.73m2 eGFR >90 >=[address] mL/min/1.73m2 Specimen Blood Performing Organization Address [facility] [place] [facility] Phone Number [address] [place] [address], [place] [address] COMPLETE BLOOD COUNT WITHOUT DIFFERENTIAL (02/11/2020 5:27 AM CDT) Pathologist Sig formerly [facility] WBC 11.8 (H) 4.0 - 11.0 K/uL [place] [address] [facility] RBC 2.55 (L) 3.80 - 5.30 M/uL [address] Hemoglobin 8.1 (L) 11.5 - 15.8 g/dL [address] Hematocrit 23.8 (L) 35.0 - 45.0 % [address] MCV 93.3 80.0 - 98.[address] MCH 31.8 25.5 - 34.[address] MCHC 34.0 31.5 - 36.5 g/dL [address] RDW-CV 13.1 11.5 - 15.5 % [address] RDW-SD 44.6 35.5 - 50.[address] Platelet Count 228 140 - 400 K/uL [address] MPV 10.3 8.5 - 12.[address] Specimen Blood Performing Organization Address [facility] [place] [facility] Phone Number [address] [address] TROPONIN I (02/10/2020 5:39 AM CDT) Pathologist Sig nature Troponin I 15.901 (H) 0.000 - 0.028 ng/mL [address] Specimen Blood Performing Organization Address [facility] [place] Phone Number [address] [address] MAGNESIUM (02/10/2020 5:39 AM CDT) Pathologist Sig nature Magnesium 1.8 1.8 - 2.4 mg/dL [address] Specimen Blood Performing Organization Address [facility] [place] [facility] Phone Number [address] [address] RENAL FUNCTION PANEL (02/10/2020 5:39 AM CDT) Pathologist Sig nature Glucose 116 (H) 70 - 100 mg/dL [address] BUN 17 6 - 22 mg/dL [address] Creatinine 0.65 0.60 - 1.[address] mg/dL BUN/Creatinine Ratio 26.2 (H) 10.0 - 25.[address] Sodium 139 135 - 145 meq/L [address] Potassium 3.3 (L) 3.5 - 5.3 meq/L [address] Chloride 111 (H) 99 - 110 meq/L [address] CO2 22 20 - 29 meq/L [address] Anion Gap with K 9 6 - 20 meq/L [address] Calcium 7.9 (L) 8.5 - 10.[address] mg/dL Phosphorus 1.8 (L) 2.5 - 4.5 mg/dL [address] Albumin 3.3 (L) 3.5 - 5.0 g/dL [address] Corrected Calcium 8.5 8.5 - 10.[address] mg/dL Age 74 [address] eGFR Non- 89 >=[address] Slovenian mL/min/1.73m2 eGFR >90 >=[address] mL/min/1.73m2 Specimen Blood Performing Organization Address [facility] [place] Phone Number [address] [place] [address], [place] [address] COMPLETE BLOOD COUNT WITHOUT DIFFERENTIAL (02/10/2020 5:39 AM CDT) Pathologist Sig nature WBC 11.2 (H) 4.0 - 11.0 K/uL [address] RBC 2.71 (L) 3.80 - 5.30 M/uL [address] Hemoglobin 8.5 (L) 11.5 - 15.8 g/dL [address] Hematocrit 25.4 (L) 35.0 - 45.0 % [address] MCV 93.7 80.0 - 98.[address] MCH 31.4 25.5 - 34.[address] MCHC 33.5 31.5 - 36.5 g/dL [address] RDW-CV 13.4 11.5 - 15.5 % [address] RDW-SD 45.7 35.5 - 50.[address] Platelet Count 230 140 - 400 K/uL [address] MPV 10.2 8.5 - 12.[address] Specimen Blood Performing Organization Address [facility] [place] [facility] Phone Number [address] [address] EKG (02/09/2020 6:40 PM CDT)Only the most recent of4 resultswithin the time period is included. Pathologist Sig nature EKG WAVEFORM TRACEMASTER JESUSITA VILLALBAB Sinus rhythm with short [place] Left bundle branch block , new Abnormal ECG When compared with ECG of 09-FEB-2020 07:48, Aberrant conduction is no longer Present Left bundle branch block is now Present Ventricular Rate: 97 BPM Atrial Rate: 97 BPM P-R Interval: 108 ms QRS Duration: 126 ms Q-T Interval: 424 ms QTc Calculation(Bazett): 538 ms Calculated P Vinton: 20 degrees Calculated R Vinton: -2 degrees Calculated T Vinton: 136 degrees Specimen Narrative Performed At This result has an attachment that is no t available. Performing Organization Address [facility] Phone Number [employer]SESE [employer]B HEMOGLOBIN (02/09/2020 4:12 PM CDT) Pathologist Sig nature Hemoglobin 9.8 (L) 11.5 - 15.8 g/dL [address] Specimen Blood Performing Organization Address [facility] [place] Phone Number [address] [address] HEMOGLOBIN (02/09/2020 12:03 PM CDT) Pathologist Sig [facility] Hemoglobin 10.3 (L) 11.5 - 15.8 g/dL [address] Specimen Blood Performing Organization Address [facility] [place] [facility] Phone Number [address] [address] ECHO ADULT COMPLETE (02/09/2020 10:53 AM CDT) Specimen Narrative Performed At This result has an attachment that is no t available. [facility] Patient: ESTHER OSBORNE MR#:[id number] Exam Date:02/09/2020 Transthoracic Echocardiogram [address] BP: 61/134 mmHg HR:75 bpm : 1945 Exam Location:Bedside Height:61.00 "(154.9 cm) Age: 74 year(s) Patient Room: 541 01Weight:133 lbs.(60.33 kg) Gender:Female Patient Status: Inpatient BSA: 1.59 m2 Chart Calculator:LUCRECIA DE ANDA RD CS, RVT Reading Physician:DAVID WESTBROOK MD Ordering Physician:DAVID Mesa Procedure Indication(s): CP, Current IABP during echo Examination: TTE Complete 2D(m-mode), Complete Spectral Doppler, Color Doppler Image Quality: Keturah hnically Difficult Technical Limitations: Echocardiographic views were limited by restricted patient mobility. Clinical History Most Recent PCI Date: 02/08/2020 Conclusions Left Ventricle: Normal left ventricular systolic functio n. The ejection fraction, measured by 2D, is 55 %. Right Ventricle: Normal right ventricular systolic function. IVC: Normal IVC size with normal respirophasic changes. Pericardium: No significant pericardial effusion.No f unctionally significant valvular abnormalities. Comparison Study Comparison Study: No previous echo was available for c omparison Findings Left Ventricle: Normal left ventricular size. Normal lef t ventricular wall thickness. Normal left ventricular systolic function. The ejection fraction, measured by 2D, is 55 %. The b keyla inferior segment is hypokinetic. Grade 1 left ventricular diastolic dysfunction. IVS: There is sigmoid septal appearance. Left Atrium: Normal left atrial size. Aortic Valve: The aortic valve is tricuspid. Normal ao rtic cuspal mobility. No significant aortic regurgitation. No aortic stenosis. Aorta: The sinus of valsalva is normal in size. Mitral Valve: Normal mitral valve structure. Trivial m itral regurgitation. No mitral stenosis. IAS: No gross evidence of shunt flow seen; ho wever the possibility of a PFO cannot be completely ruled out. Right Ventricle: Normal right ventricular size. Normal ri ght ventricular systolic function. Normal right ventricular wall thickness. Pulmonary Artery: The tricuspid jet envelope definition is inadequate for estimation of RV systolic pressure. Pulmonary Vein: Normal pulmonary venous flow. Right Atrium: Normal right atrial size. Tricuspid Valve: Normal tricuspid valve structure. No significant tricu spid regurgitation. Pulmonic Valve: Normal pulmonary valve structure. IVC: Normal IVC size with normal respirophasic changes. Pericardium: No significant pericardial effusion. No functionally significant valvular abn ormalities. There is pericardial fat. Exam Details Image Quality:Tech nically Difficult Measurements Left Ventricle Aortic Valve Label ValueNormal Value Label ValueNormal Value LVDd, 2D 48.9 mm LVOT Vmax 145 cm/s LVDs, 2D 34.9 mm AV Vmax 178 cm/s IVSd, 2D 10.2 mm LVOT VTI24.9 cm LVPWd, 2D 10 .4 mm LVOT PGmax8 mmHg FS, 2D 28.63 % AV Nyuip527 cm/s LVEDV, 2D 11 2 mlAV VTI28.9 cm LVESV, 2D 50 ml AV PGmax13 mmHg LVEF, 2D 55 %AV PGmean 6 mmHg Heart Rate AV Vmax, Gywkous125 cm/s Label ValueNormal Value Mitral Valve Heart Rate75 bpmLabel ValueNormal Value MV E Vmax 77 cm/s MV A Vmax 121 cm/s MV E/A0.64 MV E/E' lateral 9.5 MV E/E' pdwsha15.8 MV Dec Time 224 ms MV E' septal4.8 cm/s MV E' lateral 8 cm/s Wall Motion Scores -1 - Not Scored, 0 - Unknown, 1 - Normal or hyperkinesia,2 - Hypokinesia,3 - Akinesia, 4 - Dyskinesia, 5 - Aneurysm Procedure Note Interface, Inc Results No Pull Forward - 02/09/2020 2:40 PM CDT Patient: ESTHER OSBORNE MR#: [id number] Exam Date: 02/09/2020 Transthoracic Echocardiogram [facility] [address] [place] [address] BP: 61/134 mmHg HR: 75 bpm : 1945 Exa m Location: Bedside Height: 61.00 "(154.9 cm) Age: 74 year(s) Pat ient Room: [facility] Weight: 133 lbs.(60.33 kg) Gender: Female Pat ient Status: Inpatient BSA: 1.59 m2 Chart Calculator: LUCRECIA DE ANDA RDCS, RVT Reading Physician: PATRICIA WESTBROOK MD Ordering Physician: DAVID PHIPPS Procedure Indication(s): CP, Cur rent IABP during echo Examination: TTE Com plete 2D(m-mode), Complete Spectral Doppler, Color Doppler Image Quality: Technic ally Difficult Technical Limitations: Echocar diographic views were limited by restricted patient mobility. Clinical History Most Recent PCI Date: 02/08/2020 Conclusions Left Ventricle: Normal left ventricular systolic functio n. The ejection fraction, measured by 2D, is 55 %. Right Ventricle: Normal right ventricular systolic functi on. IVC: Normal IVC size with normal respirophasi c changes. Pericardium: No significant pericardial effusion.No f unctionally significant valvular abnormalities. Comparison Study Comparison Study: No previous echo was a vailable for comparison Findings Left Ventricle: Normal left ventricular size. Normal lef t ventricular wall thickness. Normal left ventricular systolic function. The ejection fraction, measured by 2D, is 55 %. The b keyla inferior segment is hypokinetic. Grade 1 left ventricular diastolic dysfunction. IVS: There is sigmoid septal appearance. Left Atrium: Normal left atrial size. Aortic Valve: The aortic valve is tricuspid. Normal ao rtic cuspal mobility. No significant aortic regurgitation. No aortic stenosis. Aorta: The sinus of valsalva is normal in size. Mitral Valve: Normal mitral valve structure. Trivial m itral regurgitation. No mitral stenosis. IAS: No gross evidence of shunt flow seen; ho wever the possibility of a PFO cannot be completely ruled out. Right Ventricle: Normal right ventricular size. Normal ri ght ventricular systolic function. Normal right ventricular wall thickness. Pulmonary Artery: The tricuspid jet envelope definition is inadequate for estimation of RV systolic pressure. Pulmonary Vein: Normal pulmonary venous flow. Right Atrium: Normal right atrial size. Tricuspid Valve: Normal tricuspid valve structure. No sig nificant tricuspid regurgitation. Pulmonic Valve: Normal pulmonary valve structure. IVC: Normal IVC size with normal respirophasi c changes. Pericardium: No significant pericardial effusion. No functionally significant valvular abn ormalities. There is pericardial fat. Exam Details Image Quality: Technica lly Difficult Measurements Left Ventricle Aortic Valve Label Value Nor mal Value Label Value Normal Value LVDd, 2D 48.9 mm LVOT Vmax 145 cm/s LVDs, 2D 34.9 mm AV Vmax 178 cm/s IVSd, 2D 10.2 mm LVOT VTI 24.9 cm LVPWd, 2D 10.4 mm LVOT PGmax 8 mmHg FS, 2D 28.63 % AV Vmean 111 cm/s LVEDV, 2D 112 ml AV VTI 28.9 cm LVESV, 2D 50 ml AV PGmax 13 mmHg LVEF, 2D 55 % AV PGmean 6 mmHg Heart Rate AV Vmax, Caliper 178 cm/s Label Value Nor mal Value Mitral Valve Heart Rate 75 bpm Label Value Normal Value MV E Vmax 77 cm/s MV A Vmax 121 cm/s MV E/A 0.64 MV E/E' lateral 9.5 MV E/E' septal 15.8 MV Dec Time 224 ms MV E' septal 4.8 cm/s MV E' lateral 8 cm/s Wall Motion Scores -1 - Not Scored, 0 - Unknown, 1 - Normal or hyperkinesia, 2 - Hypokinesia, 3 - Akinesia, 4 - Dyskinesia, 5 - Aneurysm Performing Organization Address [facility] Phone Number [facility] F, [place] MAGNESIUM (02/09/2020 5:10 AM CDT) Pathologist Sig nature Magnesium 1.6 (L) 1.8 - 2.4 mg/dL [address] Specimen Blood Performing Organization Address [facility] [place] Phone Number [address] [facility] [place] [address] LAB ONLY-COMPLETE BLOOD COUNT WITH DIFFERENTIAL (02/09/2020 5:10 AM CDT) Pathologist Sig nature WBC 17.8 (H) 4.0 - 11.0 K/uL [address] RBC 3.51 (L) 3.80 - 5.[address] M/uL Hemoglobin 11.1 (L) 11.5 - 15.[address] g/dL Hematocrit 32.4 (L) 35.0 - 45.0 % [address] MCV 92.3 80.0 - 98.[address] MCH 31.6 25.5 - 34.[address] MCHC 34.3 31.5 - 36.[address] g/dL RDW-CV 13.2 11.5 - 15.5 % [address] RDW-SD 44.2 35.5 - 50.[address] Platelet Count 341 140 - 400 K/uL [address] MPV 10.0 8.5 - 12.[address] Seg Neut Absolute 16.2 (H) 1.8 - 8.0 K/uL [address] Lymphocytes Absolute 0.5 (L) 0.8 - 4.1 K/uL [place] [address] [facility] C Monocytes Absolute 0.9 0.0 - 1.0 K/uL [place] [address] [facility] Eosinophils Absolute 0.0 0.0 - 0.7 K/uL [place] [address] [facility] C Basophil Absolute 0.0 0.0 - 0.2 K/uL [address] Immature Granulocyte 0.09 (H) 0.00 - 0.06 [place] [address] [facility] Absolute K/uL Neutrophils Abs. 16,200 /uL [address] (Segs and Bands) Neutrophils Percent 91.4 % [address] Lymphocytes Percent 2.7 % [address] Monocytes Percent 5.2 % [address] Immature Granulocyte 0.5 % [address] Percent Eosinophils Percent 0.0 % [address] Basophil Percent 0.2 % [address] Nucleated RBC 0 /[address] Specimen Blood Performing Organization Address [facility] [place] Phone Number [address] [place] [address] TROPONIN I (02/09/2020 5:10 AM CDT) Pathologist Sig nature Troponin I 69.162 (H) 0.000 - 0.028 ng/mL [address] Specimen Blood Performing Organization Address [facility] [place] Phone Number [address] [place] [address] LIPID PANEL (02/09/2020 5:10 AM CDT) Pathologist Sig nature Cholesterol 153 100 - 200 mg/dL [facility] Triglyceride 118 50 - 150 mg/dL [facility] HDL 39 (L) 40 - 80 mg/dL [facility] LDL 90 0 - 129 mg/dL [facility] Specimen Blood Performing Organization Address [facility] [place] Phone Number [facility] [address] [place], [place] [phone] HEPATIC FUNCTION PANEL (02/09/2020 5:10 AM CDT) Pathologist [facility] Alkaline Phosphatase 71 30 - 150 U/L [address] AST - SGOT 154 (H) 0 - 35 U/L [address] ALT - SGPT 32 0 - 55 U/L [address] Bilirubin Total 0.5 0.2 - 1.2 mg/dL [address] Bilirubin Indirect 0.3 0.0 - 0.8 mg/dL [address] Bilirubin Direct 0.2 0.0 - 0.4 mg/dL [address] Albumin 3.5 3.5 - 5.0 g/dL [address] Protein Total 5.7 (L) 6.0 - 8.2 g/dL [address] Specimen Blood Performing Organization Address [facility] [place] Phone Number [address] [place] [address] BASIC METABOLIC PANEL (02/09/2020 5:10 AM CDT) [facility] Glucose 164 (H) 70 - 100 mg/dL [address] BUN 15 6 - 22 mg/dL [address] Creatinine 0.71 0.60 - 1.[address] mg/dL BUN/Creatinine Ratio 21.1 10.0 - 25.[address] Sodium 140 135 - 145 meq/L [address] Potassium 3.4 (L) 3.5 - 5.3 meq/L [address] Chloride 110 99 - 110 meq/L [address] CO2 19 (L) 20 - 29 meq/L [address] Anion Gap with K 14 6 - 20 meq/L [address] Calcium 8.3 (L) 8.5 - 10.5 mg/dL [address] Age [address] eGFR Non- 80 >=[address] Slovenian mL/min/1.73m2 eGFR >90 >=[address] mL/min/1.73m2 Specimen Blood Performing Organization Address [facility] [place] Phone Number [address] [place] [address] PTT (02/09/2020 5:10 AM CDT) Pathologist Sig nature APTT 28 24 - [address] Specimen Blood Performing Organization Address [facility] [place] Phone Number [address] [facility] [place] [address] TROPONIN I (02/08/2020 11:54 PM CDT) Pathologist Sig nature Troponin I 14.051 (H) 0.000 - 0.028 ng/mL [address] Specimen Blood Performing Organization Address [facility] [place] Phone Number [address] [facility] [place] [address] TYPE AND SCREEN (02/08/2020 10:52 PM CDT) Pathologist Sig nature ABO Type A [address] BLOOD BANK Rh Type Positive [address] BLOOD BANK Antibody Screen Negative [address] Comment: BLOOD BANK Allogenic Red Cells Available 02-08-2020 Expiration Date 02/11/2020 23:[address] BLOOD BANK Specimen Blood Performing Organization Address [facility] [place] Phone Number [address] BLOOD BANK [address] [facility] [place] [place] [address] Cardiac Cath Possible Angioplasty Stent Cloth Shrinking Tester - Left (02/08/2020 10:30 PM CDT) Specimen Narrative Performed At This result has an attachment that is no t available. [facility] Patient: ESTHER OSBORNE [facility] Exam Date: 02/08/[address] Exam Time: 10:30 PM- 10:52 [place] [address] Department of Interventional Cardiology Diagnostic Left Heart Catheterization Report, Cardiac Interventional Report, Intra-aortic Balloon Pump/IMPELLA Report : 1945Fluoro Time: 13.7 min. Patient Status: InpatientAge:74 year(s)Cath Status: Patient Room: [facility] Gender: Female Diagnostic Music Publicist:KAREN Woo DO Pattern Drum Maker:Dane UNDERWOOD Indication:Angina/MS: myocardial inf arction without ST elevation (NSTEMI). Interventional Conclusions: Interventional Summary Proximal left anterior descending: A suc cessful Drug Eluting Stent was deployed using a RESOLUTE STORM RX3.0X38MM. Proximal right coronary dontae ry: A successful Drug Eluting Stent was deployed using a RESOLUTE STORM RX2.5X26MM. Procedures Performed: Art Access - R radial artery. Left Heart Cath With Ventriculogram. Fluoro 0.1-60 Minutes. Medication/Infusion/Drip. Selective Rt Coronary Angiography. Selective Lt Co ronary Angiography. Selective HORTON Angio. Art Access - R femoral artery*. Intra-aortic Balloon Pump. Drug Eluting Stent Placement. PTCA. Drug Eluting Stent Placement. PTCA. Sheath Sutured In Place. Radial Artery Compression Device. Diagnostic Findings: Coronary Angiography The coronary circulation is right dominant. Left Main Left main artery: The segment is large. Angiography shows luminal irregularites. Left Anterior Descending Left anterior descending artery: The seg ment is large. Proximal left anterior descending: The segment is large. Angiography shows severe atherosclerosis. There is a 9 0 % stenosis. Circumflex Circumflex artery: The segment is large. Angiography shows severe atherosclerosis. There is a 100 % stenosis. First obtuse marginal: The segment is large. T he vessel segment is supplied by collaterals. Second obtuse marginal: The segment is large. The vessel segment is supplied by co llaterals. Right Coronary Right coronary artery: The segment is mo derately sized. Angiography shows severe atherosclerosis. Proximal right coronary artery: There is a 90 % stenosis. Left Heart Cath Left ventricular function was assessed. The anterolateral and apical wall segments are hypokinetic. Ejection fraction was calculated by LV Gram with a value of 40%. Interventional Findings: Interventional Details Proximal left anterior descending: The i nitial stenosis was 90 %. This was an ACC/AHA High/C lesion for intervention. Guidewire crossing was successful. A successful Balloon angioplasty was per formed using a CATH GUIDE 5FR LAUNCHER [id number] during setup, a LUGE 0.014 182CM MODERATE SUPPORT during setup, and a NC EUPHORA RX 3.0X15 During Procedure. The total number of attempt(s) was 4. Th e maximum inflation pressure was 18(nely). A successful Drug Eluting Stent was depl oyed using a RESOLUTE STORM RX3.0X38MM During Procedure. The total number of attempt(s) was 1. Th e maximum inflation pressure was 18(nely). Following intervention there is a 0 % re sidual stenosis. There was OSCAR Flow 2 before the procedure and OSCAR Flow 3 following the procedure. Proximal right coronary artery: The init ial stenosis was 90 %. This was an ACC/AHA High/C lesion for intervention. Guidewire crossing was successful. A successful Balloon angioplasty was per formed using a CATH GUIDE 5FR LAUNCHER [id number] during setup, a LUGE 0.014 182CM MODERATE SUPPORT during setup, and a NC EMERGE [id number] MONORAIL During Procedure. The total number of attempt(s) was 3. Th e maximum inflation pressure was 18(nely). A successful Balloon angioplasty was per formed using a CATH GUIDE 5FR LAUNCHER [id number] during setup, a LUGE 0.014 182CM MODERATE SUPPORT during setup, and a NC EUPHORA RX 2.0X15 During Procedure. The total number of attempt(s) was 2. Th e maximum inflation pressure was 18(nely). A successful Drug Eluting Stent was depl oyed using aRESOLUTE STORM RX2.5X26MM During Procedure. The total number of attempt(s) was 1. Th e maximum inflation pressure was 18(nely). Following intervention there is a 0 % re sidual stenosis. There was OSCAR Flow 3 before the procedure and OSCAR Flow 3 following the procedure. Procedure Narrative: Access Right radial artery: The puncture site was infiltrated with 1 % Lidocaine. Vascular access was obtained using modified seldinger technique and a GLIDESHEATH SLENDER 6FR [id number] was advanced into the vessel. Hemostasis/Sheath Status: Hemostasis was successful using a(n) RADIAL TR BAND. Right femoral artery: The puncture site was infiltrated with 1 % Lidocaine. Vascular access was obtained. Hemostasis/Sheath Status: The sheath was sutured in pl henrique. Coronary Angiography Left Coronary System: A catheter was positioned into the Vesse l Ostium under fluoroscopic guidance. Contrast injections were performed using hand injection. Angiograms were obtain ed in multiple views. Right Coronary System: A catheter was positioned into the Vesse l Ostium under fluoroscopic guidance. Contrast injections were performed using hand injection. Angiograms were obtain ed in multiple views. Left Heart Cath Ventriculography was performed using 30 cc of contrast at 15 cc/sec and 600 psi. Hemodynamic Impressions Hemodynamic Findings Pressures: Baseline: LVpressure 118m mHg, EDP 21.Baseline: AOpressure 104/43mmHg, mean 40. Hemodynamic Pressures-Phase: Baseline Location : LV Pressure s : 118 mmHg Pressure ed : 21 mmHg HR : 90 bpm Hemodynamic Pressures-Phase: Baseline Location : Ao Pressure s : 104 mmHg Pressure d : 43 mmHg Pressure m : 40 mmHg HR : 90 bpm Flow Calculations, Phase: Baseline VO2: 197.22 ml/min Shunts Acute complication: No complications Contrast: Description Dose Unit HIS No. Reference No. Serial No. Lot No. Omnipaque 130.000 [id number] X-Ray: Exam total DAP:7608.90cG ycm- sq Air Kerma/Exam Total Dose:1356 mGy Ordering Physician: DAVID CASTRO [employer] Faculty Member:SHARMAINE ACHARYA RN Scrub: ARCADIO RICKETTS, RT(R) Monitor: STACEY FELDMAN Airport Planner: SWATHI BOSTON RT(R) Primary Music Publicist:KAREN HOGAN DO Diagnostic Physician Signature: Electronically signed by KAREN HOGAN DO on 2019 at 02:51 PM Interventional Physician Signature: Electronically signed by KAREN HOGAN DO on 2019 at 02:51 PM Ventriculography Measurements and Wall Motion Measurements: Name Value EF:40 % Wall Motion: RAOMot ion 2 Anterolateral:hypokinesia 3 Apical: hypokine gabi WELSH (-1) Not Scored (0) unknown (1) normal o r hyperkinesia (2) hypokinesia (3) akinesia (4) dyskinesia Procedure Note Interface, Inc Results No Pull Forward - 02/09/2020 2:53 PM CDT Patient: ESTHER OSBORNE [facility] Exam Date: 02/08/[address] Exam T ammon: 10:30 PM-10:52 PM JEFFY Mercado [id number] [facility] tment of Interventional Cardiology Diagnostic Left Heart Catheterization Re rell, Cardiac Interventional Report, Intra-aortic Balloon Pump/IMPELLA Report : 1945 Fluoro Time: 13.7 min. Patient Status: Inpatient Age: 74 year(s) Cath Status: Patient Room: [facility] Gender: Female Diagnostic Music Publicist: KAREN HOGAN DO Pattern Drum Maker: KAREN HOGAN DO Indication: Angina/MS: myocardial infar ction without ST elevation (NSTEMI). Interventional Conclusions: Interventional Summary Proximal left anterior descending: A suc cessful Drug Eluting Stent was deployed using a RESOLUTE STORM RX3.0X38MM. Proximal right coronary dontae ry: A successful Drug Eluting Stent was deployed using a RESOLUTE STORM RX2.5X26MM. Procedures Performed: Art Access - R radial artery. Left Heart Cath With Ventriculogram. Fluoro 0.1-60 Minutes. Medication/Infusion/Drip. Selective Rt Coronary Angiography. Selective Lt Co ronary Angiography. Selective HORTON Angio. Art Access - R femoral artery*. Intra-aortic Balloon Pump. Drug Eluting Stent Placement. PTCA. Drug Eluting Stent Placement. PTCA. Sheath Sutured In Place. Radial Artery Compression Device. Diagnostic Findings: Coronary Angiography The coronary circulation is right domina nt. Left Main Left main artery: The segment is large. Angiography shows luminal irregularites. Left Anterior Descending Left anterior descending artery: The seg ment is large. Proximal left anterior descending: The segment is large. Angiography shows severe atherosclerosis . There is a 90 % stenosis. Circumflex Circumflex artery: The segment is large. Angiography shows severe atherosclerosis. There is a 100 % stenosis. First obtuse marginal: The segment is large. T he vessel segment is supplied by collaterals. Second obtuse marginal: The segment is large. The vessel segment is supplied by collaterals. Right Coronary Right coronary artery: The segment is mo derately sized. Angiography shows severe atherosclerosis. Proximal right coronary artery: There is a 90 % stenosi s. Left Heart Cath Left ventricular function was assessed. The anterolateral and apical wall segments are hypokinetic. Ejection fraction was calculated by LV Gram with a value of 40 %. Interventional Findings: Interventional Details Proximal left anterior descending: The i nitial stenosis was 90 %. This was an ACC/AHA High/C lesion for intervention. Guidewire crossing was successful. A successful Balloon angioplasty was per formed using a CATH GUIDE 5FR LAUNCHER [id number] during setup, a LUGE 0.014 182CM MODERATE SUPPORT during setup, and a NC EUPHORA RX 3.0X15 During Procedure. The total number of attempt(s) was 4. Th e maximum inflation pressure was 18(nely). A successful Drug Eluting Stent was depl oyed using a RESOLUTE STORM RX3.0X38MM During Procedure. The total number of attempt(s) was 1. Th e maximum inflation pressure was 18(nely). Following intervention there is a 0 % re sidual stenosis. There was OSCAR Flow 2 before the procedure and OSCAR Flow 3 following the procedure. Proximal right coronary artery: The init ial stenosis was 90 %. This was an ACC/AHA High/C lesion for intervention. Guidewire crossing was successful. A successful Balloon angioplasty was per formed using a CATH GUIDE 5FR LAUNCHER [id number] during setup, a LUGE 0.014 182CM MODERATE SUPPORT during setup, and a NC EMERGE [id number] MONORAIL During Procedure. The total number of attempt(s) was 3. Th e maximum inflation pressure was 18(nely). A successful Balloon angioplasty was per formed using a CATH GUIDE 5FR LAUNCHER [id number] during setup, a LUGE 0.014 182CM MODERATE SUPPORT during setup, and a NC EUPHORA RX 2.0X15 During Procedure. The total number of attempt(s) was 2. Th e maximum inflation pressure was 18(nely). A successful Drug Eluting Stent was depl oyed using a RESOLUTE STORM RX2.5X26MM During Procedure. The total number of attempt(s) was 1. Th e maximum inflation pressure was 18(nely). Following intervention there is a 0 % re sidual stenosis. There was OSCAR Flow 3 before the procedure and OSCAR Flow 3 following the procedure. Procedure Narrative: Access Right radial artery: The puncture site was infiltrated with 1 % Lidocaine. Vascular access was obtained using modified seldinger technique and a GLIDESHEATH SLENDER 6FR [id number] was advanced into the vessel. Hemostasis/Sheath Status: Hemostasis was successful using a(n) RADIAL TR BAND. Right femoral artery: The puncture site was infiltrated with 1 % Lidocaine. Vascular access was obtained. Hemostasis/Sheath Status: The sheath was sutured in place. Coronary Angiography Left Coronary System: A catheter was positioned into the Vesse l Ostium under fluoroscopic guidance. Contrast injections were performed using hand injection. Angiogra ms were obtained in multiple views. Right Coronary System: A catheter was positioned into the Vesse l Ostium under fluoroscopic guidance. Contrast injections were performed using hand injection. Angiogra ms were obtained in multiple views. Left Heart Cath Ventriculography was performed using 30 cc of contrast at 15 cc/sec and 600 psi. Hemodynamic Impressions Hemodynamic Findings Pressures: Baseline: LV pressure 118mmH g, EDP 21. Baseline: AO pressure 104/43mmHg, mean 40. Hemodynamic Pressures-Phase: Baseline Location : LV Pressure s : 118 mmHg Pressure ed : 21 mmHg HR : 90 bpm Hemodynamic Pressures-Phase: Baseline Location : Ao Pressure s : 104 mmHg Pressure d : 43 mmHg Pressure m : 40 mmHg HR : 90 bpm Flow Calculations, Phase: Baseline VO2: 197.22 ml/min Shunts Acute complication: No complicatio ns Contrast: Description Dose Un it HIS No. Reference No. Serial No. Lot No. Omnipaque 130.000 ml C34 C34 X-Ray: Exam total DAP: 7608.90 cGycm-sq Air Kerma/Exam Total Dose: 1356 mGy Ordering Physician: DAVID CASTRO [employer] Faculty Member: SHARMAINE RODRIGUEZ, RN Scrub: ARCADIO FAROOQ RT(R) Monitor: STACEY HENRIQUEZ Airport Planner: SWATHI Finn RT(R) Primary Music Publicist: KAREN VARGAS ISDO Diagnostic Physician Signature: Interventional Physician Signature: Ventriculography Measurements and Wall M otion Measurements: Name Value EF: 40 % Wall Motion: ACOSTA Motion 2 Anterolateral: hypokinesia 3 Apical: hypokinesia WELSH (-1) Not Scored (0) unknown (1) normal o r hyperkinesia (2) hypokinesia (3) akinesia (4) dyskinesia Performing Organization Address [facility] Phone Number [facility] [place] LAB ONLY-ABORH (02/08/2020 10:22 PM CDT) Pathologist Sig nature ABO Type A [address] BLOOD BA NK Rh Type Positive [address] BLOOD BA NK Specimen Blood Performing Organization Address [facility] Phone Number [address] BLOOD BANK [address] [place] [address] COLLECT AND HOLD POSSIBLE CROSSMATCH TUBE (02/08/2020 10:22 PM CDT) Pathologist Sig nature Extra Tube For BB Received [address] - BLOOD BANK Specimen Blood Performing Organization Address [facility] Phone Number [address] BLOOD BANK [address] [place] [address], [place] [address] COLLECT AND HOLD POSSIBLE CROSSMATCH TUBE (02/08/2020 10:10 PM CDT) Pathologist Sig nature Extra Tube For BB Received [address] - BLOOD BANK Specimen Blood Performing Organization Address [facility] Phone Number [address] BLOOD BANK [address] [place] [address], [place] [address] XRAY CHEST PORTABLE - (02/08/2020 9:14 PM CDT) Specimen Narrative Performed At [facility] Patient Name: ESTHER OSBORNE Date of :1945 Procedure: XRAY CHEST PORTABLE Date of Service: 02/08/2020 EXAM: XRAY CHEST PORTABLE INDICATION: Female,74 years year old patient, Chest pain COMPARISON(S): 02/08/2020 TECHNIQUE: AP portable view FINDINGS: Support devices: None. Lungs: The lungs are expanded. The lungs are clear. Pleura: There is no pneumothorax on either side. Both costophrenic angles are sharp. Heart, Mediastinum and Vessels: Normal heart size. Nor mal mediastinum. There is no pulmonary edema. Normal visu alized aortic knob. Bones: Grossly unremarkable. IMPRESSION: Lungs are clear. Finalized by: Andres Del Valle MD on 02/08/2020 11:52 PM CDT Patient/Procedure Information: [facility] MRN/OLIVER: [id number] Order Number: [id number] Accession Number: [id number] Ordering Provider: FABY PLASCENCIA Authorizing Provider: DAVID ROWAN Procedure Note Interface, Radiantres - 02/08/2020 11:55 PM CDT Patient Name: ESTHER OSBORNE Date of : 1945 Procedure: XRAY CHEST PORTABLE Date of Service: 02/08/2020 EXAM: XRAY CHEST PORTABLE INDICATION: Female, 74 years year old p atient, Chest pain COMPARISON(S): 02/08/2020 TECHNIQUE: AP portable view FINDINGS: Support devices: None. Lungs: The lungs are expanded. The lungs are clear. Pleura: There is no pneumothorax on eith er side. Both costophrenic angles are sharp. Heart, Mediastinum and Vessels: Normal h eart size. Normal mediastinum. There is no pulmonary edema. Normal visualized aortic knob. Bones: Grossly unremarkable. IMPRESSION: Lungs are clear. Finalized by: Andres Del Valle MD on 02/08/2020 11:52 PM CDT Patient/Procedure Information: [facility] MRN/OLIVER: [id number] Order Number: [id number] Accession Number: [id number] Ordering Provider: FABY PLASCENCIA Authorizing Provider: DAVID ROWAN Performing Organization Address City/State/Zipcode Phone Number [id number] LAB ONLY-COMPLETE BLOOD COUNT WITH DIFFERENTIAL (02/08/2020 8:28 PM CDT) [facility] WBC 10.0 4.0 - 11.0 K/uL [address] RBC 4.15 3.80 - 5.[address] M/uL Hemoglobin 13.1 11.5 - 15.[address] g/dL Hematocrit 37.7 35.0 - 45.0 % [address] MCV 90.8 80.0 - 98.[address] MCH 31.6 25.5 - 34.[address] MCHC 34.7 31.5 - 36.[address] g/dL RDW-CV 12.8 11.5 - 15.5 % [address] RDW-SD 42.5 35.5 - 50.[address] Platelet Count 337 140 - 400 K/uL [address] MPV 10.0 8.5 - 12.[address] Seg Neut Absolute 8.3 (H) 1.8 - 8.0 K/uL [address] Lymphocytes Absolute 1.2 0.8 - 4.1 K/uL [place] [address] [facility] Monocytes Absolute 0.4 0.0 - 1.0 K/uL [place] [address] [facility] Eosinophils Absolute 0.0 0.0 - 0.7 K/uL [place] [address] [facility] Basophil Absolute 0.1 0.0 - 0.2 K/uL [address] Immature Granulocyte 0.03 0.00 - 0.06 [place] [address] [facility] Absolute K/uL Neutrophils Abs. (Segs 8,300 /uL [place] [address] [facility] and Bands) Neutrophils Percent 82.9 % [address] Lymphocytes Percent 12.0 % [address] Monocytes Percent 4.0 % [address] Immature Granulocyte 0.3 % [address] Percent Eosinophils Percent 0.2 % [address] Basophil Percent 0.6 % [address] Nucleated RBC 0 /[address] Specimen Blood Performing Organization Address City/State/Zipcode Phone Number [address] [place] [address], [place] [address] COMPREHENSIVE METABOLIC PANEL (02/08/2020 8:28 PM CDT) Pathologist [facility] nature Glucose 144 (H) 70 - 100 mg/dL [address] BUN 14 6 - 22 mg/dL [address] Creatinine 0.74 0.60 - 1.[address] mg/dL BUN/Creatinine Ratio 18.9 10.0 - 25.[address] Sodium 140 135 - 145 meq/L [address] Potassium 3.5 3.5 - 5.3 meq/L [address] Chloride 107 99 - 110 meq/L [address] CO2 21 20 - 29 meq/L [address] Anion Gap with K 16 6 - 20 meq/L [address] Calcium 9.4 8.5 - 10.5 [place] [address] [facility] mg/dL Protein Total 7.1 6.0 - 8.2 g/dL [address] Albumin 4.3 3.5 - 5.0 g/dL [address] Alkaline Phosphatase 85 30 - 150 U/L [place] [address] [facility] AST - SGOT 43 (H) 0 - 35 U/L [address] ALT - SGPT 19 0 - 55 U/L [address] Bilirubin Total 0.4 0.2 - 1.2 mg/dL [address] Age [address] eGFR Non- 77 >=[address] Slovenian mL/min/1.73m2 eGFR >90 >=[address] mL/min/1.73m2 Specimen Blood Performing Organization Address [facility] Phone Number [address] [place] [address], [place] [address] PTT (02/08/2020 8:02 PM CDT) Pathologist Sig nature APTT 49 (H) 24 - [address] Specimen Blood Performing Organization Address [facility] Phone Number [address] [place] [address] TROPONIN I (02/08/2020 8:02 PM CDT) Pathologist Sig nature Troponin I 5.666 (H) 0.000 - 0.028 ng/mL [address] Specimen Blood Performing Organization Address [facility] Phone Number [address] [place] [address] BRAIN NATRIURETIC PEPTIDE (02/08/2020 8:02 PM CDT) Pathologist Sig nature BNP 349 (H) 0 - 100 pg/mL [address] Specimen Blood Performing Organization Address [facility] Phone Number [address] [address] documented in this encounter Visit Diagnoses Diagnosis Non-ST elevation MS (NSTEMI) ([facility]) - [facility] Acute myocardial infarction, unspecified site, episode of care unspecified Hypokalemia Hypopotassemia Chest pain Chest pain, unspecified documented in this encounter Discharge Diagnoses Not on filedocumented in this encounter Administered Medications Medication Order MAR Action Action Date Dose Rate Site acetaminophen (TYLENOL) suppository 650 mg 650 mg, Rectal, Every six hours prn, Starting Sat 02/07 at 1933, Until Discontinued, fever > (indicate temp), 1 00.5 degrees F, Total dose of acetaminophen from all acetaminophen containing produc ts should not exceed 4 grams (4000 mg) per day. Use rectal suppository if patient not able to jose e oral acetaminophen., acetaminophen (TYLENOL) tablet 650 mg 650 mg, Oral, Every six hours prn, Starting Sat 0 at 1933, Until Discontinued, fever > (indicate temp), 1 00.5 degrees F, Adult patients: Total dose of acetaminophen from all acetaminophen containing pro ducts should not exceed 4 grams (4000 mg) per day. Pediatric Patie nts 0 - 3 months: Maximum of 60 mg/kg/24 hours of acetaminophen. Pediatric Patients older than 3 months: Maximum of 75 mg/kg/24 hours of acetaminophen (Never exceeding 4 gra ms/day). , acetaminophen (TYLENOL) tablet 650 mg 650 mg, Oral, Every four hours prn, Starting Sat at 2344, Until Discontinued, mild pain, Post-Procedure (Cath), Pain S alexei 1 - 3, albuterol (PROVENTIL) (2.5 mg/3mL) 0.083 % inhalation soln 2.5 mg 2.5 mg, Nebulization, Every four hours prn, Starting S at 02/08/20 at 2332, Until Discontinued, wheezing, cough, 3 mL aspirin chewable tablet 81 mg Given 02/11/2020 8:54 AM CDT 81 mg 81 mg, Oral, Daily, First dose on 02/09/20 at 0900, Until Discontinued, Post-Procedure (Cath) Given 02/10/2020 9:20 AM CDT 81 mg Given 02/09/2020 8:18 AM CDT 81 mg atorvaSTATin (LIPITOR) tablet 40 mg Given 02/10/2020 8:30 PM CDT 40 mg 40 mg, Oral, Bedtime, First dose on 02/08/20 at 2100, Until Discontinued Given 02/09/2020 8:07 PM CDT 40 mg Given 02/08/2020 8:29 PM CDT 40 mg bisacodyl (DULCOLAX) suppository 10 mg 10 mg, Rectal, One time a day prn, Starting Sat 0 at 1933, Until Discontinued, constipation, Use SECOND for constipatio n. If patient cannot take oral medications, use first for constipation., docusate sodium (THEREVAC-SB MINI;ENEMEE Z MINI) 283 MG enema 1 enema 1 enema, Rectal, One time a day prn, Starting Sat 02/07 at 1933, Until Discontinued, constipation, Use THIRD for constipation - if no BM 8 hours after ducolax suppository. If patient cannot take oral medic ations, use second for constipation., hydrALAZINE (APRESOLINE) injection solution Given 02/09/2020 10:49 AM CDT 10 mg 10 mg 10 mg, IV, Every six hours prn, Starting 02/08/20 at 2303, Until Discontinued, specified parameter, to keep SBP less than 150 mmHg, 0.5 mL, Repeat in 20 minutes if needed. If not successful after two doses, contact the interventional cardiology team., metoclopramide (REGLAN) inj soln 5 mg Given 02/08/2020 9:03 PM CDT 5 mg 5 mg, IV, Every six hours prn, Starting 02/08/20 at 1853, Until Discontinued, nausea, vomiting, 1 mL, Use SECOND. If ineffective and ondansetron used, call physician for alternative If preference is to further dilute for IV administration: First draw up patient-specific dose, then dilute to 10 mL with 0.9% sodium chloride., metoprolol tartrate (LOPRESSOR) half-tablet Given 01/14 8:54 AM CDT 12.5 mg 12.5 mg 12.5 mg, Oral, Two times a day, First dose on 02/08/20 at 2100, Until Discontinued Given 02/10/2020 8:30 PM CDT 12.5 mg Given 02/10/2020 9:20 AM CDT 12.5 mg nitroglycerin (NITROSTAT) sublingual tab let 0.4 mg 0.4 mg, Sublingual, Every five minutes prn, Starting S at 02/08/20 at 2303, Until Discontinued, chest pain, At onset of ch est pain, dissolve one tablet under tongue. May repeat every 5 minutes for 3 doses. Do not crush o r chew., ondansetron (ZOFRAN ODT) dispersible tab let 4 mg 4 mg, Oral, Every four hours prn, Starti ng Sat 02/08/20 at 1933, Until Discontinued, nausea, vomiting, Use FIRST. If ineffect rufus after 30 minutes use ondansetron IV, ondansetron (ZOFRAN) injection solution 4 mg Given 02/09/2020 6:31 PM CDT 4 mg 4 mg, IV, Every four hours prn, Starting 02/08/20 at 1933, Until Discontinued, nausea, vomiting, 2 mL, Use SECOND. If ineffective after 30 minutes and ondansetron ODT used, call physician for alternative. If preference is to further dilute for IV administration: First draw up patient-specific dose, then dilute to 10 mL with 0.9% sodium chloride., polyethyl glycol-propyl glycol (SYSTANE) Given 02/11/2020 8:57 AM CDT 2 drops ophthalmic solution 2 drop 2 drop, Left eye, Every two hours prn, Starting 02/10/20 at 2110, Until Discontinued, other (Specify), Pain, irritated or dry eye, 15 mL Given 02/10/2020 10:15 PM CDT 2 drops senna-docusate sodium (SENOKOT-S;PERICOL HENRIQUE) tablet 2 tablet 2 tablet, Oral, Two times a day prn, Starting Sat 02/07 at 1933, Until Discontinued, constipation, Use FIRST fo r constipation unless patient cannot take oral medications., sodium chloride 0.9% flush (adult) 10 mL Given 02/11/2020 8:55 AM CDT 10 mL 10 mL, IV, Two times a day and prn, First dose on 02/08/20 at 2100, Until Discontinued, 10 mL, Flush IV line as scheduled and as often as necessary before and after meds., Given 02/10/2020 8:30 PM CDT 10 mL ticagrelor (BRILINTA) tablet 90 mg Given 02/11/2020 8:54 AM CDT 90 mg 90 mg, Oral, Two times a day, 730 doses, First dose on 02/09/20 at 0900, Last dose on 02/07/21 at 2100, Post-Procedure (Cath), If medication is crushed, must be mixed with water for administration., Given 02/10/2020 8:30 PM CDT 90 mg Given 02/10/2020 9:20 AM CDT 90 mg Medication Order MAR Action Action Date Dose Rate Site albuterol (PROVENTIL) inhalation Given 02/08/2020 11:31 PM CDT 2 .5 mg solution 2.5 mg/3 mL 1 dose, Starting 02/08/20 at 2307, Until 02/08/20 at 2331, TerrasTessa: cabinet override, aspirin chewable tablet 243 mg Given 02/08/2020 9:25 PM CDT 243 mg 243 mg, Oral, One time, 1 dose, 02/08/20 at 2155, Prep Orders (Cath) if inpatient - floor RN to release, Patient to receive 325 mg aspirin prior to procedure If patient currently taking aspirin at home and has taken their dose today prior to procedure: administer aspirin dosage so that total amount prior to procedure equals 325 mg, ceFAZolin (ANCEF) 1000 mg/10 mL sterile Given 02/09/2020 6:16 P M CDT 1,000 mg water IV syringe 1,000 mg, IV, One time, 1 dose, 02/09/20 at 1700, 10 mL, Administer over 3 minutes., fentaNYL 100 mcg/2 mL preservative free Given 02/08/2020 9:46 P M CDT 25 mcg injection solution 25-300 mcg 25-300 mcg, IV, PRN per parameter, Starting 02/08/20 at 2118, Until 02/08/20 at 2342, other (Specify), sedation for cardiac catheterization, 6 mL, Pre-Procedure (Cath), procedural area to release, For sedation under direction provider privileged to perform sedation. Do not give on the floor., hEParin (50 units/mL) in D5W New Bag 02/08/2020 8:31 PM 15 Un its/kg/hr 18.2 mL/hr premixed IV solution CDT (STANDARD-weight based) 0-50 Units/kg/hr 60.7 kg (0-60.7 mL/hr), IV, at 0-60.7 mL/hr, Titrate, Starting 02/08/20 at 2045, Until 02/10/20 at 1116, 500 mL, Start initial infusion at 15 units/kg/hr. Notify physician if initial infusion exceeds 1,500 units/hr. Adjust heparin infusion based on sliding scale: * aPTT less than 60 sec ------ Give 70 units/kg IV bolus and add 4 units/kg/hr to current rate * aPTT 60-69.9 sec Give 35 units/kg IV bolus and add 2 units/kg/hr to current rate * aPTT 70-120.9 sec No change (therapeutic) * aPTT 121-135.9 sec Subtract 2 units/kg/hr from current rate * aPTT 136-149.9 sec --------- Hold heparin for 1 hour and subtract 3 units/kg/hr from current rate * aPTT 150 sec or greater - Redraw STAT aPTT and hold heparin. Draw hourly aPTT using routine specified time until less than 150 sec, then restart heparin infusion at 3 units/kg/hr less than the previous rate, give NO BOLUS and resume every 6 hour aPTT. AFTER PROCEDURE: When restarting infusion after it's been held for a procedure, restart infusion at "starting" dose of 15 units/kg/hr and follow titration orders. IF infusion was running at less than 15 units/kg/hr prior to procedure, restart at that rate and follow titration orders., heparin (porcine) injection solution Given 02/08/2020 10:32 PM C DT 2,000 Units 0-12,000 Units 0-12,000 Units, IV, Administer in Cardiac Cloth Shrinking Tester, 1 dose, 02/08/20 at 2235, 12 mL, Under the direction of the provider in CCL. Do not give on the floor., hydrALAZINE (APRESOLINE) injection solution Given 02/08/2020 8:53 PM CDT 20 mg 20 mg 20 mg, IV, One time, 1 dose, 02/08/20 at 2150, 1 mL iohexol (OMNIPAQUE) 350 mg/mL solution 130 Given 02/08/2020 11:04 PM CDT 130 mL mL 130 mL, Intra-arterial, One time, 1 dose, 02/08/20 at 2305, 150 mL lidocaine PF (XYLOCAINE-MPF) 1 % preservative Given 10:09 PM CDT 16 mL free injection solution 0-40 mL 0-40 mL, Subcutaneous, Administer in Cardiac Cloth Shrinking Tester, 1 dose, 02/08/20 at 2120, 40 mL, Given by provider in CCL. Do not give on the floor., Given 02/08/2020 9:55 PM CDT 2 mL magnesium sulfate 2 g/50 mL premixed IV Given 02/10/2020 9:20 A M CDT 2 g solution 2 g, IV, Now, 1 dose, 02/10/20 at 0750, 50 mL midazolam (VERSED) injection solution 0.5-10 Given 0 9:47 PM CDT 1 mg mg 0.5-10 mg, IV, PRN per parameter, Starting 02/08/20 at 2118, Until 02/08/20 at 2342, other (Specify), sedation for cardiac catheterization, 10 mL, Pre-Procedure (Cath), procedural area to release, For sedation under direction provider privileged to perform sedation Do not give on the floor, ondansetron (ZOFRAN) injection solution 0-4 mg Given 02/08/2020 9:47 PM CDT 4 mg 0-4 mg, IV, Administer in Cardiac Cloth Shrinking Tester, 1 dose, 02/08/20 at 2150, 2 mL, Under the direction of the provider in CCL. Do not give on the floor. If preference is to further dilute for IV administration: First draw up patient-specific dose, then dilute to 10 mL with 0.9% sodium chloride., ondansetron (ZOFRAN) injection solution 4 mg Given 02/08/2020 7:50 PM CDT 4 mg 4 mg, IV, Every four hours prn, Starting 02/08/20 at 1853, Until 02/08/20 at 2017, nausea, vomiting, 2 mL, Use FIRST. If ineffective after 15 minutes use metoclopramide. If preference is to further dilute for IV administration: First draw up patient-specific dose, then dilute to 10 mL with 0.9% sodium chloride., potassium chloride (KLOR-CON M20) CR tablet Given 01/13 9:20 AM CDT 40 mEq 40 mEq 40 mEq, Oral, Now, 1 dose, 02/10/20 at 0750, Tablet may be broken in half, but should not be crushed or chewed. Tablet may be dissolved in 4 oz of water. DO NOT give via feeding tube route as this can clog the tube., potassium chloride (KLOR-CON M20) CR tablet Given 01/14 8:54 AM CDT 40 mEq 40 mEq 40 mEq, Oral, Every four hours, 2 doses, First dose on Mon02/11/20 at 0725, Last dose on Mon02/11/20 at 1125, Tablet may be broken in half, but should not be crushed or chewed. Tablet may be dissolved in 4 oz of water. DO NOT give via feeding tube route as this can clog the tube., potassium chloride 40 mEq in dextrose 5% 500 Given 8:49 AM CDT 40 mEq mL 40 mEq, IV, Now, 1 dose, 02/09/20 at 0815, 500 mL, (peripheral line), potassium phosphate 30 mmol in dextrose 5% Given 02/10 10:21 AM CDT 30 mmol 500 mL 30 mmol, IV, One time, 1 dose, 02/11/20 at 1055, 500 mL, *15 mmol of kphos contains 22 meq of potassium. Maximum rate 10 meq/hr of potassium (6.8 mmol/hr) if patient is not on telemetry, and 20 meq/hr if patient is on telemetry (13.6 mmol/hr), please choose duration accordingly., potassium phosphates-sodium phosphates Given 02/11/2020 11:04 AM CDT 2 tablets ([id number]) tablet 2 tablet 2 tablet, Oral, One time, 1 dose, 02/11/20 at 1140, Should be given with a full glass of water. Each tablet contains 250 mg of phosphorus., sodium chloride 0.9% IV solution New Bag 02/10/2020 5:38 AM CDT 50 mL/hr IV, at 50 mL/hr, Continuous, Starting 02/08/20 at 1855, Until 02/10/20 at 1121, 1,000 mL New Bag 02/09/2020 8:46 AM CDT 50 mL/hr New Bag 02/08/2020 8:22 PM CDT 50 mL/hr sodium chloride 0.9% IV solution New Bag/Tubing 02/09/2020 12:03 AM CDT 150 mL/hr IV, at 150 mL/hr, Continuous, Starting 02/09/20 at 0005, Until 02/09/20 at 0204, 1,000 mL, Post-Procedure (Cath) verapamil-hEParin in normal saline (radial Given 02/08/2020 9:5 6 PM CDT cocktail) Intra-arterial, Administer in Cardiac Cloth Shrinking Tester, 1 dose, 02/08/20 at 2120, 10 mL, Under the direction of the provider in CCL. Do not give on the floor., documented in this encounter
== END 2020-02-08 17:01 ==
LOC: JP.ED 13:52
DX: I21.4 Non-ST elevation (NSTEMI) myocardial infarction (principal); E78.00 Pure hypercholesterolemia, unspecified; I10 Essential (primary) hypertension; M19.90 Unspecified osteoarthritis, unspecified site; Z88.1 Allergy status to other antibiotic agents; Z79.82 Long term (current) use of aspirin; Z79.899 Other long term (current) drug therapy
CPT/HCPCS: 36415; 71045; 80053; 84484; 85025; 85610; 93005; 96365; 96375; 96376; 99285; A9270; J1644; J2270; 93010; 99284

== ENCOUNTER 2021-08-26 10:46 | Emergency (ER) | payer MEDICARE, OTHER ==
[2021-08-26] MEDS ORDERED: Sodium Chloride 0.9% 10 ML Syringe FLUSH PRN (11:05)
[2021-08-26] MEDS ORDERED: Sodium Chloride 0.9% 1,000 ML IV SCH (11:30)
[2021-08-26 12:10] VITALS: BP 141/67; PULSE 60
[2021-08-26 12:18] LABS: CORONAVIRUS COVID-19 NAA POSITIVE (NEGATIVE)
[2021-08-26] MEDS ORDERED: Loperamide 2 MG Cap PO ONE (12:34)
[2021-08-26] MEDS ORDERED: Potassium Chloride 20 MEQ Tab.ER PO ONE (12:42)
== END 2021-08-26 13:19 | disposition home or self-care (01) ==
LOC: JP.ED 10:46
DX: U07.1 COVID-19 (principal); E86.0 Dehydration; E87.6 Hypokalemia; E78.00 Pure hypercholesterolemia, unspecified; I10 Essential (primary) hypertension; M19.90 Unspecified osteoarthritis, unspecified site; Z88.1 Allergy status to other antibiotic agents; Z79.82 Long term (current) use of aspirin; Z79.899 Other long term (current) drug therapy
CPT/HCPCS: 0241U; 36415; 80053; 84484; 85025; 93005; 93010; 99284; 99284-25

== ENCOUNTER 2021-09-01 21:20 | Emergency (ER) | payer MEDICARE, OTHER ==
[2021-09-01] MEDS ORDERED: Sodium Chloride 0.9% 10 ML Syringe FLUSH PRN (22:53)
[2021-09-01] MEDS ORDERED: Potassium Chloride 20 MEQ in Premix Bag 1 BAG IV ONE (22:53)
[2021-09-01] MEDS ORDERED: Potassium Chloride 20 MEQ Tab.ER PO ONE (22:53)
[2021-09-02 03:17] VITALS: BP 149/73; PULSE 61
== END 2021-09-02 09:09 | disposition home or self-care (01) ==
LOC: JP.ED 21:20
DX: U07.1 COVID-19 (principal); R41.0 Disorientation, unspecified; I25.10 Atherosclerotic heart disease of native coronary artery without angina pectoris; I10 Essential (primary) hypertension; E78.00 Pure hypercholesterolemia, unspecified; M19.90 Unspecified osteoarthritis, unspecified site; Z88.1 Allergy status to other antibiotic agents; Z79.82 Long term (current) use of aspirin; Z79.899 Other long term (current) drug therapy
CPT/HCPCS: 36415; 70450; 71045; 80053; 81001; 82947; 83605; 83615; 84145; 85025; 85379; 86140; 87046; 87077; 87493; 87899; 89055; 96365; 96366; 99285; A9270; J3480

== ENCOUNTER 2021-11-28 15:30 | Emergency (ER) | payer MEDICARE, OTHER ==
[2021-11-28 16:05] VITALS: BP 171/75; PULSE 78
== END 2021-11-28 16:58 | disposition home or self-care (01) ==
LOC: JP.ED 15:30
DX: S80.11XA Contusion of right lower leg, initial encounter (principal); I25.10 Atherosclerotic heart disease of native coronary artery without angina pectoris; E78.00 Pure hypercholesterolemia, unspecified; I10 Essential (primary) hypertension; M19.90 Unspecified osteoarthritis, unspecified site; Z79.82 Long term (current) use of aspirin; Z79.02 Long term (current) use of antithrombotics/antiplatelets; Z79.899 Other long term (current) drug therapy
CPT/HCPCS: 99282; 99283